=== PATIENT | female | born 1960 | race American Indian/Alaskan Native ===

== ENCOUNTER 2021-08-08 15:49 | Inpatient (IN) | payer MEDICAID ==
[2021-08-09 01:08] LABS: Basophils % (Auto) 0.9 % (0.0-1.8); Eosinophils # (Auto) 0.1 K/mm3 (0.0-0.4); Eosinophils % (Auto) 2.2 % (0.0-4.3); Hematocrit 36.9 % (30.3-42.9); Hemoglobin 11.8 gm/dl (10.1-14.3); Lymphocytes # (Auto) 1.7 K/mm3 (1.2-5.4); Lymphocytes % (Auto) 36.8 % (13.4-35.0); Mean Corpuscular HGB Conc 32 % (30-34); Mean Corpuscular Volume 85 fl (79-97); Monocytes # (Auto) 0.4 K/mm3 (0.0-0.8); Monocytes % (Auto) 8.8 % (0.0-7.3); Platelet Count 278 K/mm3 (140-440); Red Blood Count 4.35 M/mm3 (3.65-5.03); Red Cell Distribution Width 14.7 % (13.2-15.2)
[2021-08-09 01:30] LABS: Alanine Aminotransferase 13 units/L (7-56); Albumin 3.9 g/dL (3.9-5); BUN/Creatinine Ratio 10; Blood Urea Nitrogen 10 mg/dL (7-17); Calcium 9.3 mg/dL (8.4-10.2); Chol/HDL Ratio 3.51 %; HDL Cholesterol 49 mg/dL (40-59); Hemolysis Index 2; LDL Cholesterol,Direct 113 mg/dL (50-130)
[2021-08-09 01:32] LABS: Hepatitis B Surface Antigen Non-Reactive (Negative); Hepatitis C Virus Antibody Non-Reactive (NonReactive)
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
[2021-08-09] MEDS ORDERED: NON-FORMULARY EACH (Oxycodone Hcl/Acetaminophen [Oxycodone-Acetaminophen 10-325] 1 EACH Ta PO PRN (08:54)
[2021-08-09] MEDS ORDERED: hydrOXYzine HCL 25 MG TAB PO PRN (10:00)
[2021-08-09] MEDS ORDERED: cloNIDine 0.1 MG TAB PO PRN (10:00)
[2021-08-09] MEDS ORDERED: oxyCODONE /ACETAMINOPHEN 5-325MG TAB PO PRN (10:00)
[2021-08-09] MEDS: ASPIRIN EC 81 MG TAB PO SCH (10:05)
[2021-08-09] MEDS: amLODIPine 10 MG TAB PO SCH (10:05)
[2021-08-09] MEDS ORDERED: carvediloL 6.25 MG TAB PO SCH (11:00)
[2021-08-09] MEDS: metFORMIN 500 MG TAB PO SCH ×2 (11:03→17:39)
[2021-08-09] MEDS: GLIMEPIRIDE 2 MG TAB PO SCH (11:03)
[2021-08-09] MEDS: NYSTATIN OINT 15 GM TP SCH ×2 (11:03→21:29)
[2021-08-09] MEDS ORDERED: NON-FORMULARY EACH (Apixaban 5 MG Tablet) PO SCH (12:00)
--- NOTE | 2021-08-09 13:33 | Consultation ---
History of Present Illness - Reason for Consult Consult date: 08/09/21 Medical management - History of Present Illness Patient is a 61-year-old female past medical history of [id number] type 2 diabetes mellitus, hypertension, constipation, multiple pulmonary embolisms (on anticoagulationEliquis 5 mg twice daily), depression who presents with suicidal ideation after thoughts of jumping off of a bridge. The patient also endorsed auditory hallucinations prompting her to end her life. The patient endorses having unsheltered homelessness with her nearest family being in [place], [place]. Patient has 1 son; however, he is unaware of her most recent suicidal ideations. Patient described having acute substernal chest pain this morning. She provided more information in terms of her admitting to not being adherent to medications due to running out of them. She states that her son was filling her prescription; however, she got admitted to another hospital for unknown reasons. She has been off of her Eliquis for approximately 1 week. Medicine is being consulted for medical management. Past History Past Medical History: diabetes, hypertension, pulmonary embolism, other (Constipation) Past Surgical History: Social history: single, Lives alone, full code Family history: diabetes, hypertension Medications and Allergies Allergies Allergy/AdvReac Type Severity Reaction Status Date / Time pregabalin [From Lyrica] Allergy Hives Verified 08/08/21 21:56 Home Medications Medication Instructions Recorded Confirmed Last Taken Type Apixaban [Eliquis] 5 mg PO BID 08/09/21 08/09/21 Unknown History Aspirin EC [Halfprin EC] 81 mg PO QDAY 08/09/21 08/09/21 Unknown History Gabapentin [Neurontin] 300 mg PO TID 08/09/21 08/09/21 Unknown History Glimepiride [Amaryl] 2 mg PO DAILY 08/09/21 08/09/21 Unknown History Nystatin Oint [Mycostatin Oint] 1 applicatio TP BID 08/09/21 08/09/21 Unknown History Oxycodone HCl/Acetaminophen 1 each PO Q6HR PRN 08/09/21 08/09/21 Unknown History [Oxycodone-Acetaminophen 10-325] PARoxetine HCL [Paroxetine] 30 mg PO HS 08/09/21 08/09/21 Unknown History Prazosin [Minipress] 1 mg PO HS 08/09/21 08/09/21 Unknown History Sucralfate [Carafate] 1 gm PO ACHS 08/09/21 08/09/21 Unknown History amLODIPine [Norvasc] 10 mg PO DAILY 08/09/21 08/09/21 Unknown History cloNIDine [Catapres] 0.1 mg PO DAILY PRN 08/09/21 08/09/21 Unknown History hydrOXYzine HCL [Atarax] 25 mg PO Q8HR PRN 08/09/21 08/09/21 Unknown History metFORMIN [Glucophage] 1,000 mg PO BID 08/09/21 08/09/21 Unknown History Active Meds: Active Medications Amlodipine Besylate (Amlodipine 10 Mg Tab) 10 mg PO DAILY [facility] Last Admin: 08/09/21 10:05 Dose: 10 mg Amoxicillin/Clavulanate Potassium (Amoxicillin/K Clav 875/125mg Tab) 1 each PO Q12HR [facility]; Protocol Stop: 08/16/21 13:59 Apixaban (Apixaban 5 Mg Tab) 5 mg PO Q12HR [facility] Aspirin (Aspirin Ec 81 Mg Tab) 81 mg PO QDAY [facility] Last Admin: 08/09/21 10:05 Dose: 81 mg Carvedilol (Carvedilol 6.25 Mg Tab) 6.25 mg PO BID [facility] Clonidine HCl (Clonidine 0.1 Mg Tab) 0.1 mg PO DAILY PRN PRN Reason: Blood Pressure Gabapentin (Gabapentin 300 Mg Cap) 300 mg PO TID [facility] Glimepiride (Glimepiride 2 Mg Tab) 2 mg PO QDDIAB [facility] Last Admin: 08/09/21 11:03 Dose: Not Given Hydroxyzine HCl (Hydroxyzine Hcl 25 Mg Tab) 25 mg PO Q8HR PRN PRN Reason: Anxiety Metformin HCl (Metformin 500 Mg Tab) 1,000 mg PO BIDDIAB [facility] Last Admin: 08/09/21 11:03 Dose: Not Given Nystatin (Nystatin Oint 15 Gm) 1 applic TP BID [facility] Last Admin: 08/09/21 11:03 Dose: Not Given Oxycodone/Acetaminophen (Oxycodone /Acetaminophen 5-325mg Tab) 1 tab PO Q6H PRN PRN Reason: Pain, Moderate (4-6) Paroxetine HCl (Paroxetine 10 Mg Tab) 30 mg PO QHS [facility] Polyethylene Glycol (Polyethylene Glycol 3350 17 Gm Powder) 17 gm PO QDAY [facility] Prazosin HCl (Prazosin 1 Mg Cap) 1 mg PO HS [facility] Sucralfate (Sucralfate 1 Gm Tab) 1 gm PO ACHS [facility] Trazodone HCl (Trazodone 50 Mg Tab) 50 mg PO QHS [facility] Review of Systems All systems: negative Cardiovascular: chest pain, shortness of breath Gastrointestinal: constipation Genitourinary Female: dysuria Psychiatric: suicidal ideation (Thoughts of jumping off of a bridge), hallucinations (Auditory), sadness/tearfullness Exam - Constitutional Vitals: Temp Pulse Resp BP Pulse Ox 98.7 F 69 18 169/86 99 08/09/21 11:55 08/09/21 11:55 08/09/21 11:55 08/09/21 11:55 08/09/21 11:55 General appearance: Present: mild distress, well-nourished, obese, other (Very tearful) - EENT Eyes: Present: PERRL, EOM intact ENT: hearing intact, clear oral mucosa - Neck Neck: Present: supple, normal ROM - Respiratory Respiratory effort: normal Respiratory: bilateral: CTA - Cardiovascular Rhythm: regular Heart Sounds: Present: S1 & S2 - Extremities Extremities: no ischemia, pulses intact, pulses symmetrical, No edema, normal temperature, normal color, Full ROM Peripheral Pulses: within normal limits - Abdominal General gastrointestinal: Present: soft, non-tender, non-distended, normal bowel sounds Female genitourinary: Present: deferred - Rectal Rectal Exam: deferred - Integumentary Integumentary: Present: clear, warm, dry - Musculoskeletal Musculoskeletal: strength equal bilaterally - Psychiatric Psychiatric: appropriate mood/affect, memory intact, depressed, other (Tearful) - Neurologic Neurologic: CNII-XII intact, moves all extremities - Allied Health Allied health notes reviewed: nursing Results - Labs CBC & Chem 7: 08/09/21 00:47 08/09/21 00:47 Labs: Abnormal lab results 08/09/21 08/09/21 08/09/21 Range/Units 00:46 00:47 00:47 MCH 27 L (28-32) pg Lymph % (Auto) 36.8 H (13.4-35.0) % [place] % (Auto) 8.8 H (0.0-7.3) % Glucose 135 H (65-100) mg/dL POC Glucose (70-105) mg/dL Hemoglobin A1c 7.9 H (4-6) % Total Protein 6.0 L (6.3-8.2) g/dL 08/09/21 Range/Units 08:00 MCH (28-32) pg Lymph % (Auto) (13.4-35.0) % [place] % (Auto) (0.0-7.3) % Glucose (65-100) mg/dL POC Glucose 106 H (70-105) mg/dL Hemoglobin A1c (4-6) % Total Protein (6.3-8.2) g/dL Assessment and Plan #Chest pain Possibly secondary to pneumonia versus acute coronary syndrome versus acute pulmonary embolism versus emotional Troponin negative x1. Trending troponin. Chest x-ray (08/09/2021) unremarkable for consolidations, increased interstitial infiltrates, pleural effusions, or increased cardiac silhouette Pending CT angio chest for possible acute pulmonary embolism. If acute pulmonary embolism is found, would be secondary to nonadherence with anticoagulation prior to presentation. Continue to monitor #History of pulmonary embolism Restarting home Eliquis 5 mg twice daily #Hypertension - home medications: Amlodipine 10 mg daily and clonidine 0.1 mg as needed - current medications: Amlodipine 10 mg daily and Coreg 12.5 mg twice daily - SBP goal <160 and DBP goal <90 while inpatient - continue to monitor #Non-insulin dependent type II diabetes mellitus complicated by diabetic neuro sonny - hemoglobin A1c: 7.9 - home regimen: Metformin 1000 mg twice daily and glimepiride 2 mg daily and gabapentin 300 mg 3 times daily - current regimen: Metformin 1000 mg twice daily and glimepiride 2 mg daily and gabapentin 300 mg 3 times daily - blood glucose goal 140-180 while inpatient - continue to monitor #Dysuria Pending urinalysis Starting Augmentin 500 mg twice daily x7 days. Continue to monitor #Constipation Scheduling daily MiraLAX. Continue to monitor #Obesity #Weight loss counseling #Exercise counseling - BMI 32.9 - Counseled patient on the importance of weight loss, incorporating exercise, and dietary changes (lean meats, fresh fruits and vegetables, and water intake). Patient expresses understanding. - Time: +15 min #Advanced care planning -Disease education conducted, care plan discussed, diagnoses discussed, prognosis discussed, and patient acknowledges understanding with care plan -Time: +30 min Thank you for this interesting consult. We will continue to follow.
[2021-08-09] MEDS: AMOXICILLIN/K CLAV 875/125MG TAB PO SCH ×2 (13:41→21:27)
[2021-08-09] MEDS: SUCRALFATE 1 GM TAB PO SCH ×3 (13:43→21:27)
--- NOTE | 2021-08-09 13:47 | XRay Report ---
CHEST 1 VIEW 08/09/2021 11:58 AM INDICATION / CLINICAL INFORMATION: Evaluate in the setting of chest pain. COMPARISON: None available. FINDINGS: SUPPORT DEVICES: None. HEART / MEDIASTINUM: The heart size and pulmonary vasculature are normal. There is mild aortic tortuo sity without aneurysm. LUNGS / PLEURA: No significant pulmonary or pleural abnormality. No pneumothorax. ADDITIONAL FINDINGS: No significant additional findings. IMPRESSION: No acute findings. Signer Name: Kaleb Bee MD Signed: 08/09/2021 1:42 PM Workstation Name: [id number]
[2021-08-09] MEDS ORDERED: carvediloL 6.25 MG TAB PO ONE (14:00)
[2021-08-09] MEDS: GABAPENTIN 300 MG CAP PO SCH ×2 (15:21→21:01)
[2021-08-09] MEDS: carvediloL 12.5 MG TAB PO SCH (21:28)
[2021-08-09] MEDS: traZODone 50 MG TAB PO SCH (21:29)
[2021-08-09] MEDS: PRAZOSIN 1 MG CAP PO SCH (21:31)
[2021-08-09] MEDS ORDERED: PARoxetine 10 MG TAB PO SCH (22:00)
[2021-08-09] MEDS ORDERED: PAROXETINE HCL 30 MG PO SCH (22:00)
[2021-08-09] MEDS ORDERED: APIXABAN 5 MG TAB PO SCH (22:00)
[2021-08-10] MEDS ORDERED: hydrOXYzine HCL 25 MG TAB PO PRN (09:39)
--- NOTE | 2021-08-10 09:39 | Progress Note ---
Subjective Date of service: 08/10/21 Subjective Comment: The patient was seen today. She verbalizes feeling better. She says she slept good and didn't have any nightmares. She says she is still a little anxious and still has some depression. The patient denies SI/HI or hallucinations. REVIEW OF SYSTEMS Constitutional: Negative for weight loss ENT: Negative for stridor Respiratory: Negative for cough or hemoptysis All other systems reviewed and are negative MENTAL STATUS EXAMINATION General Appearance and Behavior: Age appropriate, good hygiene, wearing appropriate clothes, fair eye contact, anxious, cooperative Cooperation: Participating/engaged Psychomotor Behavior: Psychomotor normal Mood: better, anxious Affect and affective range: congruent with stated mood, tearful Thought Process: goal directed Thought Content: None Speech: normal tone and pace Suicidal Ideation: Denies Homicidal Ideation: Denies Hallucinations: Denies Delusions: None elicited Impulse Control: Limited Insight and Judgment: Limited insight and judgment Memory: Limited Attention: attentive Orientation: Alert, oriented Assessment and Plan Major Depressive Disorder Generalized Anxiety Disorder Treatment Plan Patient admitted for inpatient psychiatric evaluation, medication adjustment and close monitoring The patient's behavior, mood, sleep and appetite will be closely monitored. Patient enrolled in individual and group therapeutic sessions and encouraged to attend. Patient provided with a safe and structured environment. Patient's physical health needs will be addressed by the Hospitalist. Hospitalist Consulted Labs including CBC, CMP, Lipid profile and Hemoglobin A1C levels ordered for baseline reference Social Assessment will be completed and the Safety Investigator/Cause Analyst will work with patient and family to ensure a suitable and safe disposition Medication adjustment will be made as clinically indicated Increase Paxil 40mg po daily Increase Vistaril 50mg po q6h prn anxiety Usual Wellness Holiness/Preservation: - Start Trazodone 50 mg po QHS & 50 mg po QHS PRN between 10 PM & 2 AM for insomnia - Start Melatonin 5 mg po QHS to promote circadian rhythm The patient agreed on the treatment plan, understood the risk, benefit, alternative treatment, potential consequence of no treatment, and gave informed consent. Estimated days: 7 Post hospital care: primary care provider, psychiatric provider Case staffed with Dr. Coronado Medications and Allergies Allergies Allergy/AdvReac Type Severity Reaction Status Date / Time pregabalin [From Lyrica] Allergy Hives Verified 08/08/21 21:56 Home Medications Medication Instructions Recorded Confirmed Last Taken Type Apixaban [Eliquis] 5 mg PO BID 08/09/21 08/09/21 Unknown History Aspirin EC [Halfprin EC] 81 mg PO QDAY 08/09/21 08/09/21 Unknown History Gabapentin [Neurontin] 300 mg PO TID 08/09/21 08/09/21 Unknown History Glimepiride [Amaryl] 2 mg PO DAILY 08/09/21 08/09/21 Unknown History Nystatin Oint [Mycostatin Oint] 1 applicatio TP BID 08/09/21 08/09/21 Unknown History Oxycodone HCl/Acetaminophen 1 each PO Q6HR PRN 08/09/21 08/09/21 Unknown History [Oxycodone-Acetaminophen 10-325] PARoxetine HCL [Paroxetine] 30 mg PO HS 08/09/21 08/09/21 Unknown History Prazosin [Minipress] 1 mg PO HS 08/09/21 08/09/21 Unknown History Sucralfate [Carafate] 1 gm PO ACHS 08/09/21 08/09/21 Unknown History amLODIPine [Norvasc] 10 mg PO DAILY 08/09/21 08/09/21 Unknown History cloNIDine [Catapres] 0.1 mg PO DAILY PRN 08/09/21 08/09/21 Unknown History hydrOXYzine HCL [Atarax] 25 mg PO Q8HR PRN 08/09/21 08/09/21 Unknown History metFORMIN [Glucophage] 1,000 mg PO BID 08/09/21 08/09/21 Unknown History Active Meds: Active Medications Amlodipine Besylate (Amlodipine 10 Mg Tab) 10 mg PO DAILY [facility] Last Admin: 08/09/21 10:05 Dose: 10 mg Amoxicillin/Clavulanate Potassium (Amoxicillin/K Clav 875/125mg Tab) 1 each PO Q12HR [facility]; Protocol Stop: 08/16/21 13:59 Last Admin: 08/09/21 21:27 Dose: 1 each Apixaban (Apixaban 5 Mg Tab) 5 mg PO Q12HR [facility]; Protocol Aspirin (Aspirin Ec 81 Mg Tab) 81 mg PO QDAY [facility] Last Admin: 08/09/21 10:05 Dose: 81 mg Carvedilol (Carvedilol 12.5 Mg Tab) 12.5 mg PO BID [facility] Last Admin: 08/09/21 21:28 Dose: 12.5 mg Clonidine HCl (Clonidine 0.1 Mg Tab) 0.1 mg PO DAILY PRN PRN Reason: Blood Pressure Gabapentin (Gabapentin 300 Mg Cap) 300 mg PO TID [facility] Last Admin: 08/09/21 21:01 Dose: 300 mg Glimepiride (Glimepiride 2 Mg Tab) 2 mg PO QDDIAB [facility] Last Admin: 08/09/21 11:03 Dose: Not Given Hydroxyzine HCl (Hydroxyzine Hcl 25 Mg Tab) 25 mg PO Q8HR PRN PRN Reason: Anxiety Metformin HCl (Metformin 500 Mg Tab) 1,000 mg PO BIDDIAB [facility] Last Admin: 08/09/21 17:39 Dose: Not Given Nystatin (Nystatin Oint 15 Gm) 1 applic TP BID [facility] Last Admin: 08/09/21 21:29 Dose: 1 applic Oxycodone/Acetaminophen (Oxycodone /Acetaminophen 5-325mg Tab) 1 tab PO Q6H PRN PRN Reason: Pain, Moderate (4-6) Paroxetine HCl (Paroxetine 10 Mg Tab) 30 mg PO QHS [facility] Last Admin: 08/09/21 22:19 Dose: 30 mg Polyethylene Glycol (Polyethylene Glycol 3350 17 Gm Powder) 17 gm PO QDAY [facility] Prazosin HCl (Prazosin 1 Mg Cap) 1 mg PO [facility] Last Admin: 08/09/21 21:31 Dose: 1 mg Sucralfate (Sucralfate 1 Gm Tab) 1 gm PO [facility] Last Admin: 08/09/21 21:27 Dose: 1 gm Trazodone HCl (Trazodone 50 Mg Tab) 50 mg PO QHS [facility] Last Admin: 08/09/21 21:29 Dose: 50 mg Results - Results Labs/Vitals: Laboratory Last Values WBC 4.6 K/mm3 (4.5-11.0) 08/09/21 00:47 RBC 4.35 M/mm3 (3.65-5.03) 08/09/21 00:47 Hgb 11.8 gm/dl (10.1-14.3) 08/09/21 00:47 Hct 36.9 % (30.3-42.9) 08/09/21 00:47 MCV 85 fl (79-97) 08/09/21 00:47 MCH 27 pg (28-32) L 08/09/21 00:47 MCHC 32 % (30-34) 08/09/21 00:47 RDW 14.7 % (13.2-15.2) 08/09/21 00:47 Plt Count 278 K/mm3 (140-440) 08/09/21 00:47 Lymph % (Auto) 36.8 % (13.4-35.0) H 08/09/21 00:47 [place] % (Auto) 8.8 % (0.0-7.3) H 08/09/21 00:47 Eos % (Auto) 2.2 % (0.0-4.3) 08/09/21 00:47 Baso % (Auto) 0.9 % (0.0-1.8) 08/09/21 00:47 Lymph # (Auto) 1.7 K/mm3 (1.2-5.4) 08/09/21 00:47 [place] # (Auto) 0.4 K/mm3 (0.0-0.8) 08/09/21 00:47 Eos # (Auto) 0.1 K/mm3 (0.0-0.4) 08/09/21 00:47 Baso # (Auto) 0.0 K/mm3 (0.0-0.1) 08/09/21 00:47 Seg Neutrophils % 51.3 % (40.0-70.0) 08/09/21 00:47 Seg Neutrophils # 2.4 K/mm3 (1.8-7.7) 08/09/21 00:47 Sodium 138 mmol/L (137-145) 08/09/21 00:47 Potassium 4.5 mmol/L (3.6-5.0) 08/09/21 00:47 Chloride 102.7 mmol/L (98-107) 08/09/21 00:47 Carbon Dioxide 28 mmol/L (22-30) 08/09/21 00:47 Anion Gap 12 mmol/L 08/09/21 00:47 BUN 10 mg/dL (7-17) 08/09/21 00:47 Creatinine 1.0 mg/dL (0.6-1.2) 08/09/21 00:47 Estimated GFR > 60 ml/min 08/09/21 00:47 BUN/Creatinine Ratio 10 % 08/09/21 00:47 Glucose 135 mg/dL (65-100) H 08/09/21 00:47 POC Glucose 188 mg/dL (70-105) H 08/09/21 19:48 Hemoglobin A1c 7.9 % (4-6) H 08/09/21 00:46 Calcium 9.3 mg/dL (8.4-10.2) 08/09/21 00:47 Total Bilirubin < 0.20 mg/dL (0.1-1.2) 08/09/21 00:47 AST 10 units/L (5-40) 08/09/21 00:47 ALT 13 units/L (7-56) 08/09/21 00:47 Alkaline Phosphatase 109 units/L (35-129) 08/09/21 00:47 Troponin T < 0.010 ng/mL (0.00-0.029) 08/09/21 16:28 Total Protein 6.0 g/dL (6.3-8.2) L 08/09/21 00:47 Albumin 3.9 g/dL (3.9-5) 08/09/21 00:47 Albumin/Globulin Ratio 1.9 % 08/09/21 00:47 Triglycerides 64 mg/dL (2-149) 08/09/21 00:47 Cholesterol 172 mg/dL (50-199) 08/09/21 00:47 LDL Cholesterol Direct 113 mg/dL (50-130) 08/09/21 00:47 HDL Cholesterol 49 mg/dL (40-59) 08/09/21 00:47 Cholesterol/HDL Ratio 3.51 % 08/09/21 00:47 TSH 1.410 mlU/mL (0.270-4.200) 08/09/21 00:46 Hep Bs Antigen Non-reactive (Negative) 08/09/21 00:47 Hep B Core IgM Ab Non-reactive (NonReactive) 08/09/21 00:47 Hepatitis C Antibody Non-reactive (NonReactive) 08/09/21 00:47 Last Vital Signs Temp 97.8 F 08/09/21 19:54 Pulse 74 08/09/21 21:31 Resp 18 08/09/21 19:54 BP 159/67 08/09/21 21:31 Pulse Ox 97 08/09/21 19:54
[2021-08-10] MEDS: POLYETHYLENE GLYCOL 3350 17 GM POWDER PO SCH ×2 (10:09→20:09)
[2021-08-10] MEDS: AMOXICILLIN/K CLAV 875/125MG TAB PO SCH ×2 (10:10→22:04)
[2021-08-10] MEDS: APIXABAN 5 MG TAB PO SCH ×2 (10:10→22:05)
[2021-08-10] MEDS: ASPIRIN EC 81 MG TAB PO SCH (10:10)
[2021-08-10] MEDS: GABAPENTIN 300 MG CAP PO SCH ×3 (10:11→20:14)
[2021-08-10] MEDS: SUCRALFATE 1 GM TAB PO SCH ×4 (10:11→22:03)
[2021-08-10] MEDS: GLIMEPIRIDE 2 MG TAB PO SCH (10:11)
[2021-08-10] MEDS: carvediloL 12.5 MG TAB PO SCH ×2 (10:12→22:05)
[2021-08-10] MEDS: metFORMIN 500 MG TAB PO SCH ×2 (10:12→16:41)
[2021-08-10] MEDS: amLODIPine 10 MG TAB PO SCH (10:12)
[2021-08-10] MEDS: NYSTATIN OINT 15 GM TP SCH ×2 (10:13→22:04)
--- NOTE | 2021-08-10 10:32 | Cat Scan Report ---
CT angio chest INDICATION / CLINICAL INFORMATION: Evaluate for pulmonary embolism. TECHNIQUE: Axial CT images were obtained through the chest after injection of 75 cc Omnipaque 350 IV contrast. 3 plane MIP and/or 3D reconstructions were produced. All CT scans at this location are perf ormed using CT dose reduction for ALARA by means of automated exposure control. COMPARISON: Chest radiograph from yesterday, 08/09/2021 FINDINGS: PULMONARY ARTERIES: No central or segmental pulmonary embolus. THORACIC AORTA: No significant abnormality. HEART: No significant abnormality. CORONARY ARTERY CALCIFICATION: No significant calcification. LYMPHADENOPATHY: Mildly enlarged mediastinal lymph nodes are present. These are nonspecific but may b e reactive. LUNGS/PLEURA: Mild airspace consolidation of the right lower lobe No pleural effusion or pneumothorax . OTHER FINDINGS: None. UPPER ABDOMEN: No acute findings. SKELETAL SYSTEM: No acute osseous findings. IMPRESSION: 1. No evidence for pulmonary embolism. 2. Minimal airspace consolidation of the right lower lobe, may reflect developing infiltrate or atele ctasis. Signer Name: Jez Wheat MD Signed: 08/10/2021 10:28 AM Workstation Name: [id number]
[2021-08-10] MEDS: PARoxetine 20 MG TAB PO SCH (12:13)
--- NOTE | 2021-08-10 14:45 | Progress Note ---
Assessment and Plan Assessment and plan: #Chest painruled out Possibly secondary to pneumonia versus acute coronary syndrome versus acute pulmonary embolism versus emotional Troponin negative x 3 Chest x-ray (08/09/2021) unremarkable for consolidations, increased interstitial infiltrates, pleural effusions, or increased cardiac silhouette CT angio chest unremarkable for acute pulmonary embolism. Continue to monitor #History of pulmonary embolism Continue home Eliquis 5 mg twice daily #Hypertension - home medications: Amlodipine 10 mg daily and clonidine 0.1 mg as needed - current medications: Amlodipine 10 mg daily and Coreg 12.5 mg twice daily - SBP goal <160 and DBP goal <90 while inpatient - continue to monitor #Non-insulin dependent type II diabetes mellitus complicated by diabetic neuropathy - hemoglobin A1c: 7.9 - home regimen: Metformin 1000 mg twice daily and glimepiride 2 mg daily and gabapentin 300 mg 3 times daily - current regimen: Metformin 1000 mg twice daily and glimepiride 2 mg daily and gabapentin 300 mg 3 times daily - blood glucose goal 140-180 while inpatient - continue to monitor #Dysuria Pending urinalysis Continue Augmentin 500 mg twice daily x7 days. Continue to monitor #Constipation Scheduling daily MiraLAX. Continue to monitor #Obesity #Weight loss counseling #Exercise counseling - BMI 32.9 - Counseled patient on the importance of weight loss, incorporating exercise, and dietary changes (lean meats, fresh fruits and vegetables, and water intake). Patient expresses understanding. - Time: +15 min #Advanced care planning -Disease education conducted, care plan discussed, diagnoses discussed, prognosis discussed, and patient acknowledges understanding with care plan -Time: +30 min Continuing to follow this patient. Please all hesitate to reach out should any questions arise. Disposition Plan: Continue medical management Total Time Spent with Patient (Minutes): 45 minutes History Interval history: No acute events overnight. Hospitalist Physical - Constitutional Vitals: Temp Pulse Resp BP Pulse Ox 97.8 F 75 18 130/80 97 08/09/21 19:54 08/10/21 10:12 08/09/21 19:54 08/10/21 10:12 08/09/21 19:54 General appearance: Present: no acute distress, well-nourished, obese, other (Very tearful) - EENT Eyes: Present: PERRL, EOM intact ENT: hearing intact, clear oral mucosa, dentition normal - Neck Neck: Present: supple, normal ROM - Respiratory Respiratory effort: normal Respiratory: bilateral: CTA - Cardiovascular Rhythm: regular Heart Sounds: Present: S1 & S2 - Extremities Extremities: no ischemia, pulses intact, pulses symmetrical, No edema, normal temperature, normal color, Full ROM Peripheral Pulses: within normal limits - Abdominal General gastrointestinal: soft, non-tender, non-distended, normal bowel sounds - Integumentary Integumentary: Present: clear, warm, dry - Psychiatric Psychiatric: appropriate mood/affect, cooperative, depressed - Neurologic Neurologic: CNII-XII intact, moves all extremities - Allied Health Allied health notes reviewed: nursing HEART Score - HEART Score Troponin: Troponin T < 0.010 ng/mL (0.00-0.029) 08/09/21 16:28 Results - Labs CBC & Chem 7: 08/09/21 00:47 08/09/21 00:47 Labs: Laboratory Last Values WBC 4.6 K/mm3 (4.5-11.0) 08/09/21 00:47 RBC 4.35 M/mm3 (3.65-5.03) 08/09/21 00:47 Hgb 11.8 gm/dl (10.1-14.3) 08/09/21 00:47 Hct 36.9 % (30.3-42.9) 08/09/21 00:47 MCV 85 fl (79-97) 08/09/21 00:47 MCH 27 pg (28-32) L 08/09/21 00:47 MCHC 32 % (30-34) 08/09/21 00:47 RDW 14.7 % (13.2-15.2) 08/09/21 00:47 Plt Count 278 K/mm3 (140-440) 08/09/21 00:47 Lymph % (Auto) 36.8 % (13.4-35.0) H 08/09/21 00:47 [place] % (Auto) 8.8 % (0.0-7.3) H 08/09/21 00:47 Eos % (Auto) 2.2 % (0.0-4.3) 08/09/21 00:47 Baso % (Auto) 0.9 % (0.0-1.8) 08/09/21 00:47 Lymph # (Auto) 1.7 K/mm3 (1.2-5.4) 08/09/21 00:47 [place] # (Auto) 0.4 K/mm3 (0.0-0.8) 08/09/21 00:47 Eos # (Auto) 0.1 K/mm3 (0.0-0.4) 08/09/21 00:47 Baso # (Auto) 0.0 K/mm3 (0.0-0.1) 08/09/21 00:47 Seg Neutrophils % 51.3 % (40.0-70.0) 08/09/21 00:47 Seg Neutrophils # 2.4 K/mm3 (1.8-7.7) 08/09/21 00:47 Sodium 138 mmol/L (137-145) 08/09/21 00:47 Potassium 4.5 mmol/L (3.6-5.0) 08/09/21 00:47 Chloride 102.7 mmol/L (98-107) 08/09/21 00:47 Carbon Dioxide 28 mmol/L (22-30) 08/09/21 00:47 Anion Gap 12 mmol/L 08/09/21 00:47 BUN 10 mg/dL (7-17) 08/09/21 00:47 Creatinine 1.0 mg/dL (0.6-1.2) 08/09/21 00:47 Estimated GFR > 60 ml/min 08/09/21 00:47 BUN/Creatinine Ratio 10 % 08/09/21 00:47 Glucose 135 mg/dL (65-100) H 08/09/21 00:47 POC Glucose 145 mg/dL (70-105) H 08/10/21 11:40 Hemoglobin A1c 7.9 % (4-6) H 08/09/21 00:46 Calcium 9.3 mg/dL (8.4-10.2) 08/09/21 00:47 Total Bilirubin < 0.20 mg/dL (0.1-1.2) 08/09/21 00:47 AST 10 units/L (5-40) 08/09/21 00:47 ALT 13 units/L (7-56) 08/09/21 00:47 Alkaline Phosphatase 109 units/L (35-129) 08/09/21 00:47 Troponin T < 0.010 ng/mL (0.00-0.029) 08/09/21 16:28 Total Protein 6.0 g/dL (6.3-8.2) L 08/09/21 00:47 Albumin 3.9 g/dL (3.9-5) 08/09/21 00:47 Albumin/Globulin Ratio 1.9 % 08/09/21 00:47 Triglycerides 64 mg/dL (2-149) 08/09/21 00:47 Cholesterol 172 mg/dL (50-199) 08/09/21 00:47 LDL Cholesterol Direct 113 mg/dL (50-130) 08/09/21 00:47 HDL Cholesterol 49 mg/dL (40-59) 08/09/21 00:47 Cholesterol/HDL Ratio 3.51 % 08/09/21 00:47 TSH 1.410 mlU/mL (0.270-4.200) 08/09/21 00:46 Hep Bs Antigen Non-reactive (Negative) 08/09/21 00:47 Hep B Core IgM Ab Non-reactive (NonReactive) 08/09/21 00:47 Hepatitis C Antibody Non-reactive (NonReactive) 08/09/21 00:47 [place]/IV: Voiding Method Toilet Active Medications - Current Medications Current Medications: Generic Name Dose Route Start Last Admin Trade Name Freq PRN Reason Stop Dose Admin Amlodipine Besylate 10 mg 08/09/21 10:00 08/10/21 10:12 Amlodipine 10 Mg Tab PO 10 mg DAILY [facility] Administration Amoxicillin/Clavulanate Potassium 1 each 08/09/21 14:00 08/10/21 10:10 Amoxicillin/K Clav 875/125mg Tab PO 08/16/21 13:59 1 each Q12HR [facility] Administration Protocol Apixaban 5 mg 08/10/21 10:00 08/10/21 10:10 Apixaban 5 Mg Tab PO 5 mg Q12HR [facility] Administration Protocol Aspirin 81 mg 08/09/21 10:00 08/10/21 10:10 Aspirin Ec 81 Mg Tab PO 81 mg QDAY [facility] Administration Carvedilol 12.5 mg 08/09/21 22:00 08/10/21 10:12 Carvedilol 12.5 Mg Tab PO 12.5 mg BID [facility] Administration Clonidine HCl 0.1 mg 08/09/21 10:00 Clonidine 0.1 Mg Tab PO DAILY PRN Blood Pressure Gabapentin 300 mg 08/09/21 14:00 08/10/21 14:25 Gabapentin 300 Mg Cap PO 300 mg TID [facility] Administration Glimepiride 2 mg 08/09/21 10:00 08/10/21 10:11 Glimepiride 2 Mg Tab PO 2 mg QDDIAB [facility] Administration Hydroxyzine HCl 50 mg 08/10/21 09:39 Hydroxyzine Hcl 25 Mg Tab PO Q8H PRN Anxiety Metformin HCl 1,000 mg 08/09/21 10:00 08/10/21 10:12 Metformin 500 Mg Tab PO 1,000 mg BIDDIAB [facility] Administration Nystatin 1 applic 08/09/21 10:00 08/10/21 10:13 Nystatin Oint 15 Gm TP 1 applic BID [facility] Administration Oxycodone/Acetaminophen 1 tab 08/09/21 10:00 Oxycodone /Acetaminophen 5-325mg Tab PO Q6H PRN Pain, Moderate (4-6) Paroxetine HCl 40 mg 08/10/21 10:00 08/10/21 12:13 Paroxetine 20 Mg Tab PO Not Given QDAY [facility] Polyethylene Glycol 17 gm 08/09/21 18:00 08/10/21 10:09 Polyethylene Glycol 3350 17 Gm Powder PO 17 gm QDAY [facility] Administration Prazosin HCl 1 mg 08/09/21 22:00 08/09/21 21:31 Prazosin 1 Mg Cap PO 1 mg HS [facility] Administration Sucralfate 1 gm 08/09/21 11:30 08/10/21 11:30 Sucralfate 1 Gm Tab PO 1 gm ACHS [facility] Administration Trazodone HCl 50 mg 08/09/21 22:00 08/09/21 21:29 Trazodone 50 Mg Tab PO 50 mg QHS [facility] Administration
[2021-08-10] MEDS: traZODone 50 MG TAB PO SCH (22:04)
[2021-08-10] MEDS: PRAZOSIN 1 MG CAP PO SCH (22:06)
[2021-08-11] MEDS: GLIMEPIRIDE 2 MG TAB PO SCH (08:27)
[2021-08-11] MEDS: SUCRALFATE 1 GM TAB PO SCH ×4 (08:27→21:35)
[2021-08-11] MEDS: GABAPENTIN 300 MG CAP PO SCH ×3 (08:27→20:04)
[2021-08-11] MEDS: metFORMIN 500 MG TAB PO SCH ×2 (08:27→16:25)
[2021-08-11] MEDS: ASPIRIN EC 81 MG TAB PO SCH (09:03)
[2021-08-11] MEDS: AMOXICILLIN/K CLAV 875/125MG TAB PO SCH ×2 (09:03→21:35)
[2021-08-11] MEDS: POLYETHYLENE GLYCOL 3350 17 GM POWDER PO SCH (09:03)
[2021-08-11] MEDS: carvediloL 12.5 MG TAB PO SCH ×2 (09:07→21:36)
[2021-08-11] MEDS: APIXABAN 5 MG TAB PO SCH ×2 (09:09→21:35)
[2021-08-11] MEDS: PARoxetine 20 MG TAB PO SCH (09:09)
[2021-08-11] MEDS: NYSTATIN OINT 15 GM TP SCH ×2 (09:11→21:38)
[2021-08-11] MEDS: oxyCODONE /ACETAMINOPHEN 5-325MG TAB PO PRN ×2 (09:19→20:04)
--- NOTE | 2021-08-11 09:22 | Progress Note ---
Subjective Date of service: 08/11/21 Principal diagnosis: Dementia with Behavioral Disturbance Subjective Comment: The patient was seen today. She says she is doing better and slept well. The patient denies SI/HI or hallucinations. She c/o pain in her left knee. The nurse notified. 08/10 The patient was seen today. She verbalizes feeling better. She says she slept good and didn't have any nightmares. She says she is still a little anxious and still has some depression. The patient denies SI/HI or hallucinations. REVIEW OF SYSTEMS Constitutional: Negative for weight loss ENT: Negative for stridor Respiratory: Negative for cough or hemoptysis All other systems reviewed and are negative MENTAL STATUS EXAMINATION General Appearance and Behavior: Age appropriate, good hygiene, wearing appropriate clothes, fair eye contact, anxious, cooperative Cooperation: Participating/engaged Psychomotor Behavior: Psychomotor normal Mood: better, anxious Affect and affective range: congruent with stated mood, tearful Thought Process: goal directed Thought Content: None Speech: normal tone and pace Suicidal Ideation: Denies Homicidal Ideation: Denies Hallucinations: Denies Delusions: None elicited Impulse Control: Limited Insight and Judgment: Limited insight and judgment Memory: Limited Attention: attentive Orientation: Alert, oriented Assessment and Plan Major Depressive Disorder Generalized Anxiety Disorder Treatment Plan Patient admitted for inpatient psychiatric evaluation, medication adjustment and close monitoring The patient's behavior, mood, sleep and appetite will be closely monitored. Patient enrolled in individual and group therapeutic sessions and encouraged to attend. Patient provided with a safe and structured environment. Patient's physical health needs will be addressed by the Hospitalist. Hospitalist Consulted Labs including CBC, CMP, Lipid profile and Hemoglobin A1C levels ordered for baseline reference Social Assessment will be completed and the Business Law Instructor will work with patient and family to ensure a suitable and safe disposition Medication adjustment will be made as clinically indicated Continue Paxil 40mg po daily Continue Vistaril 50mg po q6h prn anxiety [facility]: - Start Trazodone 50 mg po QHS & 50 mg po QHS PRN between 10 PM & 2 AM for insomnia - Start Melatonin 5 mg po QHS to promote circadian rhythm The patient agreed on the treatment plan, understood the risk, benefit, alternative treatment, potential consequence of no treatment, and gave informed consent. Estimated days: 7 Post hospital care: primary care provider, psychiatric provider Case staffed with Dr. Coronado Medications and Allergies Allergies Allergy/AdvReac Type Severity Reaction Status Date / Time pregabalin [From Lyrica] Allergy Hives Verified 08/08/21 21:56 Home Medications Medication Instructions Recorded Confirmed Last Taken Type Apixaban [Eliquis] 5 mg PO BID 08/09/21 08/09/21 Unknown History Aspirin EC [Halfprin EC] 81 mg PO QDAY 08/09/21 08/09/21 Unknown History Gabapentin [Neurontin] 300 mg PO TID 08/09/21 08/09/21 Unknown History Glimepiride [Amaryl] 2 mg PO DAILY 08/09/21 08/09/21 Unknown History Nystatin Oint [Mycostatin Oint] 1 applicatio TP BID 08/09/21 08/09/21 Unknown History Oxycodone HCl/Acetaminophen 1 each PO Q6HR PRN 08/09/21 08/09/21 Unknown History [Oxycodone-Acetaminophen 10-325] PARoxetine HCL [Paroxetine] 30 mg PO HS 08/09/21 08/09/21 Unknown History Prazosin [Minipress] 1 mg PO HS 08/09/21 08/09/21 Unknown History Sucralfate [Carafate] 1 gm PO ACHS 08/09/21 08/09/21 Unknown History amLODIPine [Norvasc] 10 mg PO DAILY 08/09/21 08/09/21 Unknown History cloNIDine [Catapres] 0.1 mg PO DAILY PRN 08/09/21 08/09/21 Unknown History hydrOXYzine HCL [Atarax] 25 mg PO Q8HR PRN 08/09/21 08/09/21 Unknown History metFORMIN [Glucophage] 1,000 mg PO BID 08/09/21 08/09/21 Unknown History Active Meds: Active Medications Amoxicillin/Clavulanate Potassium (Amoxicillin/K Clav 875/125mg Tab) 1 each PO Q12HR [facility]; Protocol Stop: 08/16/21 13:59 Last Admin: 08/11/21 09:03 Dose: 1 each Apixaban (Apixaban 5 Mg Tab) 5 mg PO Q12HR [facility]; Protocol Last Admin: 08/11/21 09:09 Dose: 5 mg Aspirin (Aspirin Ec 81 Mg Tab) 81 mg PO QDAY [facility] Last Admin: 08/11/21 09:03 Dose: 81 mg Carvedilol (Carvedilol 12.5 Mg Tab) 12.5 mg PO BID [facility] Last Admin: 08/11/21 09:07 Dose: 12.5 mg Clonidine HCl (Clonidine 0.1 Mg Tab) 0.1 mg PO DAILY PRN PRN Reason: Blood Pressure Gabapentin (Gabapentin 300 Mg Cap) 300 mg PO TID [facility] Last Admin: 08/11/21 08:27 Dose: 300 mg Glimepiride (Glimepiride 2 Mg Tab) 2 mg PO QDDIAB [facility] Last Admin: 08/11/21 08:27 Dose: 2 mg Hydroxyzine HCl (Hydroxyzine Hcl 25 Mg Tab) 50 mg PO Q8H PRN PRN Reason: Anxiety Last Admin: 08/10/21 20:24 Dose: 50 mg Losartan Potassium (Losartan 25 Mg Tab) 25 mg PO QDAY [facility] Metformin HCl (Metformin 500 Mg Tab) 1,000 mg PO BIDDIAB [facility] Last Admin: 08/11/21 08:27 Dose: 1,000 mg Nifedipine (Nifedipine Xl 30 Mg Tab) 30 mg PO QDAY [facility] Nystatin (Nystatin Oint 15 Gm) 1 applic TP BID [facility] Last Admin: 08/11/21 09:11 Dose: Not Given Oxycodone/Acetaminophen (Oxycodone /Acetaminophen 5-325mg Tab) 1 tab PO Q6H PRN PRN Reason: Pain, Moderate (4-6) Last Admin: 08/11/21 09:19 Dose: 1 tab Paroxetine HCl (Paroxetine 20 Mg Tab) 40 mg PO QDAY [facility] Last Admin: 08/11/21 09:09 Dose: 40 mg Polyethylene Glycol (Polyethylene Glycol 3350 17 Gm Powder) 17 gm PO QDAY [facility] Last Admin: 08/11/21 09:03 Dose: 17 gm Prazosin HCl (Prazosin 1 Mg Cap) 1 mg PO HS [facility] Last Admin: 08/10/21 22:06 Dose: 1 mg Sucralfate (Sucralfate 1 Gm Tab) 1 gm PO ACHS [facility] Last Admin: 08/11/21 08:27 Dose: 1 gm Trazodone HCl (Trazodone 50 Mg Tab) 50 mg PO QHS [facility] Last Admin: 08/10/21 22:04 Dose: 50 mg Results - Results Labs/Vitals: Laboratory Last Values WBC 4.6 K/mm3 (4.5-11.0) 08/09/21 00:47 RBC 4.35 M/mm3 (3.65-5.03) 08/09/21 00:47 Hgb 11.8 gm/dl (10.1-14.3) 08/09/21 00:47 Hct 36.9 % (30.3-42.9) 08/09/21 00:47 MCV 85 fl (79-97) 08/09/21 00:47 MCH 27 pg (28-32) L 08/09/21 00:47 MCHC 32 % (30-34) 08/09/21 00:47 RDW 14.7 % (13.2-15.2) 08/09/21 00:47 Plt Count 278 K/mm3 (140-440) 08/09/21 00:47 Lymph % (Auto) 36.8 % (13.4-35.0) H 08/09/21 00:47 [place] % (Auto) 8.8 % (0.0-7.3) H 08/09/21 00:47 Eos % (Auto) 2.2 % (0.0-4.3) 08/09/21 00:47 Baso % (Auto) 0.9 % (0.0-1.8) 08/09/21 00:47 Lymph # (Auto) 1.7 K/mm3 (1.2-5.4) 08/09/21 00:47 [place] # (Auto) 0.4 K/mm3 (0.0-0.8) 08/09/21 00:47 Eos # (Auto) 0.1 K/mm3 (0.0-0.4) 08/09/21 00:47 Baso # (Auto) 0.0 K/mm3 (0.0-0.1) 08/09/21 00:47 Seg Neutrophils % 51.3 % (40.0-70.0) 08/09/21 00:47 Seg Neutrophils # 2.4 K/mm3 (1.8-7.7) 08/09/21 00:47 Sodium 138 mmol/L (137-145) 08/09/21 00:47 Potassium 4.5 mmol/L (3.6-5.0) 08/09/21 00:47 Chloride 102.7 mmol/L (98-107) 08/09/21 00:47 Carbon Dioxide 28 mmol/L (22-30) 08/09/21 00:47 Anion Gap 12 mmol/L 08/09/21 00:47 BUN 10 mg/dL (7-17) 08/09/21 00:47 Creatinine 1.0 mg/dL (0.6-1.2) 08/09/21 00:47 Estimated GFR > 60 ml/min 08/09/21 00:47 BUN/Creatinine Ratio 10 % 08/09/21 00:47 Glucose 135 mg/dL (65-100) H 08/09/21 00:47 POC Glucose 107 mg/dL (70-105) H 08/11/21 06:15 Hemoglobin A1c 7.9 % (4-6) H 08/09/21 00:46 Calcium 9.3 mg/dL (8.4-10.2) 08/09/21 00:47 Total Bilirubin < 0.20 mg/dL (0.1-1.2) 08/09/21 00:47 AST 10 units/L (5-40) 08/09/21 00:47 ALT 13 units/L (7-56) 08/09/21 00:47 Alkaline Phosphatase 109 units/L (35-129) 08/09/21 00:47 Troponin T < 0.010 ng/mL (0.00-0.029) 08/09/21 16:28 Total Protein 6.0 g/dL (6.3-8.2) L 08/09/21 00:47 Albumin 3.9 g/dL (3.9-5) 08/09/21 00:47 Albumin/Globulin Ratio 1.9 % 08/09/21 00:47 Triglycerides 64 mg/dL (2-149) 08/09/21 00:47 Cholesterol 172 mg/dL (50-199) 08/09/21 00:47 LDL Cholesterol Direct 113 mg/dL (50-130) 08/09/21 00:47 HDL Cholesterol 49 mg/dL (40-59) 08/09/21 00:47 Cholesterol/HDL Ratio 3.51 % 08/09/21 00:47 TSH 1.410 mlU/mL (0.270-4.200) 08/09/21 00:46 Hep Bs Antigen Non-reactive (Negative) 08/09/21 00:47 Hep B Core IgM Ab Non-reactive (NonReactive) 08/09/21 00:47 Hepatitis C Antibody Non-reactive (NonReactive) 08/09/21 00:47 Last Vital Signs Temp 97.8 F 08/10/21 20:36 Pulse 84 08/11/21 09:07 Resp 16 08/11/21 07:59 BP 133/70 08/11/21 09:07 Pulse Ox 97 08/11/21 07:59
[2021-08-11] MEDS: LOSARTAN 25 MG TAB PO SCH (09:40)
[2021-08-11] MEDS: NIFEdipine XL 30 MG TAB PO SCH (09:41)
--- NOTE | 2021-08-11 10:51 | Progress Note ---
Assessment and Plan Assessment and plan: #Chest painruled out Possibly secondary to pneumonia versus acute coronary syndrome versus acute pulmonary embolism versus emotional Troponin negative x 3 Chest x-ray (08/09/2021) unremarkable for consolidations, increased interstitial infiltrates, pleural effusions, or increased cardiac silhouette CT angio chest unremarkable for acute pulmonary embolism. Continue to monitor #History of pulmonary embolism Continue home Eliquis 5 mg twice daily #Hypertension - home medications: Amlodipine 10 mg daily and clonidine 0.1 mg as needed - current medications: Coreg 12.5 mg twice daily. Starting losartan 25 mg daily and nifedipine 30 mg daily. - SBP goal <160 and DBP goal <90 while inpatient - continue to monitor #Non-insulin dependent type II diabetes mellitus complicated by diabetic neuropathy - hemoglobin A1c: 7.9 - home regimen: Metformin 1000 mg twice daily and glimepiride 2 mg daily and gabapentin 300 mg 3 times daily - current regimen: Metformin 1000 mg twice daily and glimepiride 2 mg daily and gabapentin 300 mg 3 times daily - blood glucose goal 140-180 while inpatient - continue to monitor #Dysuria Pending urinalysis Continue Augmentin 500 mg twice daily x7 days. Continue to monitor #Constipation Scheduling daily MiraLAX. Continue to monitor #Obesity #Weight loss counseling #Exercise counseling - BMI 32.9 - Counseled patient on the importance of weight loss, incorporating exercise, and dietary changes (lean meats, fresh fruits and vegetables, and water intake). Patient expresses understanding. - Time: +15 min #Advanced care planning -Disease education conducted, care plan discussed, diagnoses discussed, prognosis discussed, and patient acknowledges understanding with care plan -Time: +30 min Continuing to follow this patient. Please all hesitate to reach out should any questions arise. Disposition Plan: Continue medical management Total Time Spent with Patient (Minutes): 30 minutes History Interval history: No acute events overnight. Hospitalist Physical - Constitutional Vitals: Temp Pulse Resp BP Pulse Ox 97.8 F 84 16 133/70 97 08/10/21 20:36 08/11/21 09:40 08/11/21 07:59 08/11/21 09:40 08/11/21 07:59 General appearance: Present: no acute distress, well-nourished, obese, other (Very tearful) - EENT Eyes: Present: PERRL, EOM intact ENT: hearing intact, clear oral mucosa, dentition normal - Neck Neck: Present: supple, normal ROM - Respiratory Respiratory effort: normal Respiratory: bilateral: CTA - Cardiovascular Rhythm: regular Heart Sounds: Present: S1 & S2 - Extremities Extremities: no ischemia, pulses intact, pulses symmetrical, No edema, normal temperature, normal color Peripheral Pulses: within normal limits - Abdominal General gastrointestinal: soft, non-tender, non-distended, normal bowel sounds - Integumentary Integumentary: Present: clear, warm, dry - Psychiatric Psychiatric: appropriate mood/affect, cooperative, depressed - Neurologic Neurologic: CNII-XII intact, moves all extremities - Allied Health Allied health notes reviewed: nursing HEART Score - HEART Score Troponin: Troponin T < 0.010 ng/mL (0.00-0.029) 08/09/21 16:28 Results - Labs CBC & Chem 7: 08/09/21 00:47 08/09/21 00:47 Labs: Laboratory Last Values WBC 4.6 K/mm3 (4.5-11.0) 08/09/21 00:47 RBC 4.35 M/mm3 (3.65-5.03) 08/09/21 00:47 Hgb 11.8 gm/dl (10.1-14.3) 08/09/21 00:47 Hct 36.9 % (30.3-42.9) 08/09/21 00:47 MCV 85 fl (79-97) 08/09/21 00:47 MCH 27 pg (28-32) L 08/09/21 00:47 MCHC 32 % (30-34) 08/09/21 00:47 RDW 14.7 % (13.2-15.2) 08/09/21 00:47 Plt Count 278 K/mm3 (140-440) 08/09/21 00:47 Lymph % (Auto) 36.8 % (13.4-35.0) H 08/09/21 00:47 [place] % (Auto) 8.8 % (0.0-7.3) H 08/09/21 00:47 Eos % (Auto) 2.2 % (0.0-4.3) 08/09/21 00:47 Baso % (Auto) 0.9 % (0.0-1.8) 08/09/21 00:47 Lymph # (Auto) 1.7 K/mm3 (1.2-5.4) 08/09/21 00:47 [place] # (Auto) 0.4 K/mm3 (0.0-0.8) 08/09/21 00:47 Eos # (Auto) 0.1 K/mm3 (0.0-0.4) 08/09/21 00:47 Baso # (Auto) 0.0 K/mm3 (0.0-0.1) 08/09/21 00:47 Seg Neutrophils % 51.3 % (40.0-70.0) 08/09/21 00:47 Seg Neutrophils # 2.4 K/mm3 (1.8-7.7) 08/09/21 00:47 Sodium 138 mmol/L (137-145) 08/09/21 00:47 Potassium 4.5 mmol/L (3.6-5.0) 08/09/21 00:47 Chloride 102.7 mmol/L (98-107) 08/09/21 00:47 Carbon Dioxide 28 mmol/L (22-30) 08/09/21 00:47 Anion Gap 12 mmol/L 08/09/21 00:47 BUN 10 mg/dL (7-17) 08/09/21 00:47 Creatinine 1.0 mg/dL (0.6-1.2) 08/09/21 00:47 Estimated GFR > 60 ml/min 08/09/21 00:47 BUN/Creatinine Ratio 10 % 08/09/21 00:47 Glucose 135 mg/dL (65-100) H 08/09/21 00:47 POC Glucose 107 mg/dL (70-105) H 08/11/21 06:15 Hemoglobin A1c 7.9 % (4-6) H 08/09/21 00:46 Calcium 9.3 mg/dL (8.4-10.2) 08/09/21 00:47 Total Bilirubin < 0.20 mg/dL (0.1-1.2) 08/09/21 00:47 AST 10 units/L (5-40) 08/09/21 00:47 ALT 13 units/L (7-56) 08/09/21 00:47 Alkaline Phosphatase 109 units/L (35-129) 08/09/21 00:47 Troponin T < 0.010 ng/mL (0.00-0.029) 08/09/21 16:28 Total Protein 6.0 g/dL (6.3-8.2) L 08/09/21 00:47 Albumin 3.9 g/dL (3.9-5) 08/09/21 00:47 Albumin/Globulin Ratio 1.9 % 08/09/21 00:47 Triglycerides 64 mg/dL (2-149) 08/09/21 00:47 Cholesterol 172 mg/dL (50-199) 08/09/21 00:47 LDL Cholesterol Direct 113 mg/dL (50-130) 08/09/21 00:47 HDL Cholesterol 49 mg/dL (40-59) 08/09/21 00:47 Cholesterol/HDL Ratio 3.51 % 08/09/21 00:47 TSH 1.410 mlU/mL (0.270-4.200) 08/09/21 00:46 Hep Bs Antigen Non-reactive (Negative) 08/09/21 00:47 Hep B Core IgM Ab Non-reactive (NonReactive) 08/09/21 00:47 Hepatitis C Antibody Non-reactive (NonReactive) 08/09/21 00:47 [place]/IV: Voiding Method Toilet Active Medications - Current Medications Current Medications: Generic Name Dose Route Start Last Admin Trade Name Freq PRN Reason Stop Dose Admin Amoxicillin/Clavulanate Potassium 1 each 08/09/21 14:00 08/11/21 09:03 Amoxicillin/K Clav 875/125mg Tab PO 08/16/21 13:59 1 each Q12HR [facility] Administration Protocol Apixaban 5 mg 08/10/21 10:00 08/11/21 09:09 Apixaban 5 Mg Tab PO 5 mg Q12HR [facility] Administration Protocol Aspirin 81 mg 08/09/21 10:00 08/11/21 09:03 Aspirin Ec 81 Mg Tab PO 81 mg QDAY [facility] Administration Carvedilol 12.5 mg 08/09/21 22:00 08/11/21 09:07 Carvedilol 12.5 Mg Tab PO 12.5 mg BID [facility] Administration Clonidine HCl 0.1 mg 08/09/21 10:00 Clonidine 0.1 Mg Tab PO DAILY PRN Blood Pressure Gabapentin 300 mg 08/09/21 14:00 08/11/21 08:27 Gabapentin 300 Mg Cap PO 300 mg TID [facility] Administration Glimepiride 2 mg 08/09/21 10:00 08/11/21 08:27 Glimepiride 2 Mg Tab PO 2 mg QDDIAB [facility] Administration Hydroxyzine HCl 50 mg 08/10/21 09:39 08/10/21 20:24 Hydroxyzine Hcl 25 Mg Tab PO 50 mg Q8H PRN Administration Anxiety Losartan Potassium 25 mg 08/11/21 10:00 08/11/21 09:40 Losartan 25 Mg Tab PO 25 mg QDAY [facility] Administration Metformin HCl 1,000 mg 08/09/21 10:00 08/11/21 08:27 Metformin 500 Mg Tab PO 1,000 mg BIDDIAB [facility] Administration Nifedipine 30 mg 08/11/21 10:00 08/11/21 09:41 Nifedipine Xl 30 Mg Tab PO 30 mg QDAY [facility] Administration Nystatin 1 applic 08/09/21 10:00 08/11/21 09:11 Nystatin Oint 15 Gm TP Not Given BID [facility] Oxycodone/Acetaminophen 1 tab 08/09/21 10:00 08/11/21 09:19 Oxycodone /Acetaminophen 5-325mg Tab PO 1 tab Q6H PRN Administration Pain, Moderate (4-6) Paroxetine HCl 40 mg 08/10/21 10:00 08/11/21 09:09 Paroxetine 20 Mg Tab PO 40 mg QDAY [facility] Administration Polyethylene Glycol 17 gm 08/09/21 18:00 08/11/21 09:03 Polyethylene Glycol 3350 17 Gm Powder PO 17 gm QDAY [facility] Administration Prazosin HCl 1 mg 08/09/21 22:00 08/10/21 22:06 Prazosin 1 Mg Cap PO 1 mg HS [facility] Administration Sucralfate 1 gm 08/09/21 11:30 08/11/21 08:27 Sucralfate 1 Gm Tab PO 1 gm ACHS [facility] Administration Trazodone HCl 50 mg 08/09/21 22:00 08/10/21 22:04 Trazodone 50 Mg Tab PO 50 mg QHS [facility] Administration
[2021-08-11] MEDS: PRAZOSIN 1 MG CAP PO SCH (21:35)
[2021-08-11] MEDS: traZODone 50 MG TAB PO SCH (21:35)
[2021-08-12] MEDS: SUCRALFATE 1 GM TAB PO SCH ×4 (08:18→21:28)
[2021-08-12] MEDS: metFORMIN 500 MG TAB PO SCH ×2 (08:18→16:52)
[2021-08-12] MEDS: GABAPENTIN 300 MG CAP PO SCH ×3 (08:19→20:19)
[2021-08-12] MEDS: GLIMEPIRIDE 2 MG TAB PO SCH (08:19)
[2021-08-12 09:00] LABS: Hematocrit 39.1 % (30.3-42.9); Hemoglobin 12.5 gm/dl (10.1-14.3); Mean Corpuscular HGB Conc 32 % (30-34); Mean Corpuscular Volume 85 fl (79-97); Platelet Count 259 K/mm3 (140-440); Red Blood Count 4.61 M/mm3 (3.65-5.03)
[2021-08-12] MEDS: ASPIRIN EC 81 MG TAB PO SCH (09:07)
[2021-08-12] MEDS: LOSARTAN 25 MG TAB PO SCH (09:07)
[2021-08-12] MEDS: AMOXICILLIN/K CLAV 875/125MG TAB PO SCH ×2 (09:07→21:28)
[2021-08-12] MEDS: PARoxetine 20 MG TAB PO SCH (09:07)
[2021-08-12] MEDS: APIXABAN 5 MG TAB PO SCH ×2 (09:08→21:30)
[2021-08-12] MEDS: carvediloL 12.5 MG TAB PO SCH ×2 (09:08→21:29)
[2021-08-12] MEDS: oxyCODONE /ACETAMINOPHEN 5-325MG TAB PO PRN ×2 (09:08→21:02)
[2021-08-12] MEDS: POLYETHYLENE GLYCOL 3350 17 GM POWDER PO SCH (09:11)
[2021-08-12] MEDS: NYSTATIN OINT 15 GM TP SCH ×2 (09:12→21:30)
--- NOTE | 2021-08-12 10:01 | Progress Note ---
Subjective Date of service: 08/12/21 Principal diagnosis: Dementia with Behavioral Disturbance Subjective Comment: The patient was seen today. She is calm and cooperative. She says she feels much better. The patent says the meds have been helping her. She denies SI/HI or hallucinations of any kind. She will discharge home tomorrow if night uneventful. 08/11 The patient was seen today. She says she is doing better and slept well. The patient denies SI/HI or hallucinations. She c/o pain in her left knee. The nurse notified. 08/10 The patient was seen today. She verbalizes feeling better. She says she slept good and didn't have any nightmares. She says she is still a little anxious and still has some depression. The patient denies SI/HI or hallucinations. REVIEW OF SYSTEMS Constitutional: Negative for weight loss ENT: Negative for stridor Respiratory: Negative for cough or hemoptysis All other systems reviewed and are negative MENTAL STATUS EXAMINATION General Appearance and Behavior: Age appropriate, good hygiene, wearing appropriate clothes, fair eye contact, anxious, cooperative Cooperation: Participating/engaged Psychomotor Behavior: Psychomotor normal Mood: better, anxious Affect and affective range: congruent with stated mood, tearful Thought Process: goal directed Thought Content: None Speech: normal tone and pace Suicidal Ideation: Denies Homicidal Ideation: Denies Hallucinations: Denies Delusions: None elicited Impulse Control: Limited Insight and Judgment: Limited insight and judgment Memory: Limited Attention: attentive Orientation: Alert, oriented Assessment and Plan Major Depressive Disorder Generalized Anxiety Disorder Treatment Plan Patient admitted for inpatient psychiatric evaluation, medication adjustment and close monitoring The patient's behavior, mood, sleep and appetite will be closely monitored. Patient enrolled in individual and group therapeutic sessions and encouraged to attend. Patient provided with a safe and structured environment. Patient's physical health needs will be addressed by the Hospitalist. Hospitalist Consulted Labs including CBC, CMP, Lipid profile and Hemoglobin A1C levels ordered for baseline reference Social Assessment will be completed and the Camp Housekeeper will work with patient and family to ensure a suitable and safe disposition Medication adjustment will be made as clinically indicated Continue meds Usual Wellness Jewish/Preservation: - Start Trazodone 50 mg po QHS & 50 mg po QHS PRN between 10 PM & 2 AM for insomnia - Start Melatonin 5 mg po QHS to promote circadian rhythm The patient agreed on the treatment plan, understood the risk, benefit, alternative treatment, potential consequence of no treatment, and gave informed consent. Estimated days: 7 Post hospital care: primary care provider, psychiatric provider Case staffed with Dr. Coronado Medications and Allergies Allergies Allergy/AdvReac Type Severity Reaction Status Date / Time pregabalin [From Lyrica] Allergy Hives Verified 08/08/21 21:56 Home Medications Medication Instructions Recorded Confirmed Last Taken Type Apixaban [Eliquis] 5 mg PO BID 08/09/21 08/09/21 Unknown History Aspirin EC [Halfprin EC] 81 mg PO QDAY 08/09/21 08/09/21 Unknown History Gabapentin 300 mg PO TID 08/09/21 08/09/21 Unknown History Glimepiride [Amaryl] 2 mg PO DAILY 08/09/21 08/09/21 Unknown History Nystatin Oint [Mycostatin Oint] 1 applicatio TP BID 08/09/21 08/09/21 Unknown History Oxycodone HCl/Acetaminophen 1 each PO Q6HR PRN 08/09/21 08/09/21 Unknown History [Oxycodone-Acetaminophen 10-325] Prazosin 1 mg PO HS 08/09/21 08/09/21 Unknown History Sucralfate [Carafate] 1 gm PO ACHS 08/09/21 08/09/21 Unknown History amLODIPine 10 mg PO DAILY 08/09/21 08/09/21 Unknown History cloNIDine [Catapres] 0.1 mg PO DAILY PRN 08/09/21 08/09/21 Unknown History metFORMIN [Glucophage] 1,000 mg PO BID 08/09/21 08/09/21 Unknown History PARoxetine [Paxil] 40 mg PO QDAY #60 tablet 08/12/21 Unknown Rx hydrOXYzine HCL [Atarax] 50 mg PO Q8H PRN #120 tablet 08/12/21 Unknown Rx traZODone [Desyrel] 50 mg PO QHS #30 tablet 08/12/21 Unknown Rx Active Meds: Active Medications Amoxicillin/Clavulanate Potassium (Amoxicillin/K Clav 875/125mg Tab) 1 each PO Q12HR MADHAVI; Protocol Stop: 08/16/21 13:59 Last Admin: 08/12/21 09:07 Dose: 1 each Apixaban (Apixaban 5 Mg Tab) 5 mg PO Q12HR MADHAVI; Protocol Last Admin: 08/12/21 09:08 Dose: 5 mg Aspirin (Aspirin Ec 81 Mg Tab) 81 mg PO QDAY [facility] Last Admin: 08/12/21 09:07 Dose: 81 mg Carvedilol (Carvedilol 12.5 Mg Tab) 12.5 mg PO BID [facility] Last Admin: 08/12/21 09:08 Dose: 12.5 mg Clonidine HCl (Clonidine 0.1 Mg Tab) 0.1 mg PO DAILY PRN PRN Reason: Blood Pressure Gabapentin (Gabapentin 300 Mg Cap) 300 mg PO TID [facility] Last Admin: 08/12/21 08:19 Dose: 300 mg Glimepiride (Glimepiride 2 Mg Tab) 2 mg PO QDDIAB [facility] Last Admin: 08/12/21 08:19 Dose: 2 mg Hydroxyzine HCl (Hydroxyzine Hcl 25 Mg Tab) 50 mg PO Q8H PRN PRN Reason: Anxiety Last Admin: 08/10/21 20:24 Dose: 50 mg Losartan Potassium (Losartan 25 Mg Tab) 25 mg PO QDAY [facility] Last Admin: 08/12/21 09:07 Dose: 25 mg Metformin HCl (Metformin 500 Mg Tab) 1,000 mg PO BIDDIAB [facility] Last Admin: 08/12/21 08:18 Dose: 1,000 mg Nifedipine (Nifedipine Xl 30 Mg Tab) 30 mg PO QDAY [facility] Last Admin: 08/11/21 09:41 Dose: 30 mg Nystatin (Nystatin Oint 15 Gm) 1 applic TP BID [facility] Last Admin: 08/12/21 09:12 Dose: 1 applic Oxycodone/Acetaminophen (Oxycodone /Acetaminophen 5-325mg Tab) 1 tab PO Q6H PRN PRN Reason: Pain, Moderate (4-6) Last Admin: 08/12/21 09:08 Dose: 1 tab Paroxetine HCl (Paroxetine 20 Mg Tab) 40 mg PO QDAY [facility] Last Admin: 08/12/21 09:07 Dose: 40 mg Polyethylene Glycol (Polyethylene Glycol 3350 17 Gm Powder) 17 gm PO QDAY [facility] Last Admin: 08/12/21 09:11 Dose: Not Given Prazosin HCl (Prazosin 1 Mg Cap) 1 mg PO HS [facility] Last Admin: 08/11/21 21:35 Dose: 1 mg Sucralfate (Sucralfate 1 Gm Tab) 1 gm PO ACHS [facility] Last Admin: 08/12/21 08:18 Dose: 1 gm Trazodone HCl (Trazodone 50 Mg Tab) 50 mg PO QHS [facility] Last Admin: 08/11/21 21:35 Dose: 50 mg Results - Results Labs/Vitals: Laboratory Last Values WBC 4.6 K/mm3 (4.5-11.0) 08/12/21 08:42 RBC 4.61 M/mm3 (3.65-5.03) 08/12/21 08:42 Hgb 12.5 gm/dl (10.1-14.3) 08/12/21 08:42 Hct 39.1 % (30.3-42.9) 08/12/21 08:42 MCV 85 fl (79-97) 08/12/21 08:42 MCH 27 pg (28-32) L 08/12/21 08:42 MCHC 32 % (30-34) 08/12/21 08:42 RDW 15.0 % (13.2-15.2) 08/12/21 08:42 Plt Count 259 K/mm3 (140-440) 08/12/21 08:42 Lymph % (Auto) 36.8 % (13.4-35.0) H 08/09/21 00:47 [place] % (Auto) 8.8 % (0.0-7.3) H 08/09/21 00:47 Eos % (Auto) 2.2 % (0.0-4.3) 08/09/21 00:47 Baso % (Auto) 0.9 % (0.0-1.8) 08/09/21 00:47 Lymph # (Auto) 1.7 K/mm3 (1.2-5.4) 08/09/21 00:47 [place] # (Auto) 0.4 K/mm3 (0.0-0.8) 08/09/21 00:47 Eos # (Auto) 0.1 K/mm3 (0.0-0.4) 08/09/21 00:47 Baso # (Auto) 0.0 K/mm3 (0.0-0.1) 08/09/21 00:47 Seg Neutrophils % 51.3 % (40.0-70.0) 05/06/22 00:47 Seg Neutrophils # 2.4 K/mm3 (1.8-7.7) 08/09/21 00:47 Sodium 138 mmol/L (137-145) 08/09/21 00:47 Potassium 4.5 mmol/L (3.6-5.0) 08/09/21 00:47 Chloride 102.7 mmol/L (98-107) 08/09/21 00:47 Carbon Dioxide 28 mmol/L (22-30) 08/09/21 00:47 Anion Gap 12 mmol/L 08/09/21 00:47 BUN 10 mg/dL (7-17) 08/09/21 00:47 Creatinine 1.0 mg/dL (0.6-1.2) 08/09/21 00:47 Estimated GFR > 60 ml/min 08/09/21 00:47 BUN/Creatinine Ratio 10 % 08/09/21 00:47 Glucose 135 mg/dL (65-100) H 08/09/21 00:47 POC Glucose 104 mg/dL (70-105) 08/12/21 06:19 Hemoglobin A1c 7.9 % (4-6) H 08/09/21 00:46 Calcium 9.3 mg/dL (8.4-10.2) 08/09/21 00:47 Total Bilirubin < 0.20 mg/dL (0.1-1.2) 08/09/21 00:47 AST 10 units/L (5-40) 08/09/21 00:47 ALT 13 units/L (7-56) 08/09/21 00:47 Alkaline Phosphatase 109 units/L (35-129) 08/09/21 00:47 Troponin T < 0.010 ng/mL (0.00-0.029) 08/09/21 16:28 Total Protein 6.0 g/dL (6.3-8.2) L 08/09/21 00:47 Albumin 3.9 g/dL (3.9-5) 08/09/21 00:47 Albumin/Globulin Ratio 1.9 % 08/09/21 00:47 Triglycerides 64 mg/dL (2-149) 08/09/21 00:47 Cholesterol 172 mg/dL (50-199) 08/09/21 00:47 LDL Cholesterol Direct 113 mg/dL (50-130) 08/09/21 00:47 HDL Cholesterol 49 mg/dL (40-59) 08/09/21 00:47 Cholesterol/HDL Ratio 3.51 % 08/09/21 00:47 TSH 1.410 mlU/mL (0.270-4.200) 08/09/21 00:46 Hep Bs Antigen Non-reactive (Negative) 08/09/21 00:47 Hep B Core IgM Ab Non-reactive (NonReactive) 08/09/21 00:47 Hepatitis C Antibody Non-reactive (NonReactive) 08/09/21 00:47 Last Vital Signs Temp 98.4 F 08/12/21 08:41 Pulse 71 08/12/21 09:08 Resp 18 08/12/21 09:08 BP 138/63 08/12/21 09:08 Pulse Ox 97 08/12/21 08:41
[2021-08-12] MEDS: NIFEdipine XL 30 MG TAB PO SCH (10:22)
--- NOTE | 2021-08-12 12:41 | Progress Note ---
Assessment and Plan Assessment and plan: #Chest painruled out Possibly secondary to pneumonia versus acute coronary syndrome versus acute pulmonary embolism versus emotional Troponin negative x 3 Chest x-ray (08/09/2021) unremarkable for consolidations, increased interstitial infiltrates, pleural effusions, or increased cardiac silhouette CT angio chest unremarkable for acute pulmonary embolism. Continue to monitor #History of pulmonary embolism Continue home Eliquis 5 mg twice daily #Hypertension - home medications: Amlodipine 10 mg daily and clonidine 0.1 mg as needed - current medications: Coreg 12.5 mg twice daily. Starting losartan 25 mg daily and nifedipine 30 mg daily. - SBP goal <160 and DBP goal <90 while inpatient - continue to monitor #Non-insulin dependent type II diabetes mellitus complicated by diabetic neuropathy - hemoglobin A1c: 7.9 - home regimen: Metformin 1000 mg twice daily and glimepiride 2 mg daily and gabapentin 300 mg 3 times daily - current regimen: Metformin 1000 mg twice daily and glimepiride 2 mg daily and gabapentin 300 mg 3 times daily - blood glucose goal 140-180 while inpatient - continue to monitor #Dysuria Pending urinalysis Continue Augmentin 500 mg twice daily x7 days. Continue to monitor #Constipation Scheduling daily MiraLAX. Continue to monitor #Obesity #Weight loss counseling #Exercise counseling - BMI 32.9 - Counseled patient on the importance of weight loss, incorporating exercise, and dietary changes (lean meats, fresh fruits and vegetables, and water intake). Patient expresses understanding. - Time: +15 min #Advanced care planning -Disease education conducted, care plan discussed, diagnoses discussed, prognosis discussed, and patient acknowledges understanding with care plan -Time: +30 min Continuing to follow this patient. Please all hesitate to reach out should any questions arise. Disposition Plan: Continue medical management Total Time Spent with Patient (Minutes): 30 minutes History Interval history: No acute events overnight. Hospitalist Physical - Constitutional Vitals: Temp Pulse Resp BP Pulse Ox 98.4 F 71 18 138/63 97 08/12/21 08:41 08/12/21 09:08 08/12/21 09:08 08/12/21 09:08 08/12/21 08:41 General appearance: Present: no acute distress, well-nourished, obese, other (Very tearful) - EENT Eyes: Present: PERRL, EOM intact ENT: hearing intact, clear oral mucosa - Neck Neck: Present: supple, normal ROM - Respiratory Respiratory effort: normal Respiratory: bilateral: CTA - Cardiovascular Rhythm: regular Heart Sounds: Present: S1 & S2 - Extremities Extremities: no ischemia, pulses intact, pulses symmetrical, No edema, normal temperature, normal color Peripheral Pulses: within normal limits - Abdominal General gastrointestinal: soft, non-tender, non-distended, normal bowel sounds - Integumentary Integumentary: Present: clear, warm, dry - Psychiatric Psychiatric: appropriate mood/affect, cooperative - Neurologic Neurologic: CNII-XII intact, moves all extremities - Allied Health Allied health notes reviewed: nursing HEART Score - HEART Score Troponin: Troponin T < 0.010 ng/mL (0.00-0.029) 08/09/21 16:28 Results - Labs CBC & Chem 7: 08/12/21 08:42 08/09/21 00:47 Labs: Laboratory Last Values WBC 4.6 K/mm3 (4.5-11.0) 08/12/21 08:42 RBC 4.61 M/mm3 (3.65-5.03) 08/12/21 08:42 Hgb 12.5 gm/dl (10.1-14.3) 08/12/21 08:42 Hct 39.1 % (30.3-42.9) 08/12/21 08:42 MCV 85 fl (79-97) 08/12/21 08:42 MCH 27 pg (28-32) L 08/12/21 08:42 MCHC 32 % (30-34) 08/12/21 08:42 RDW 15.0 % (13.2-15.2) 08/12/21 08:42 Plt Count 259 K/mm3 (140-440) 08/12/21 08:42 Lymph % (Auto) 36.8 % (13.4-35.0) H 08/09/21 00:47 [place] % (Auto) 8.8 % (0.0-7.3) H 08/09/21 00:47 Eos % (Auto) 2.2 % (0.0-4.3) 08/09/21 00:47 Baso % (Auto) 0.9 % (0.0-1.8) 08/09/21 00:47 Lymph # (Auto) 1.7 K/mm3 (1.2-5.4) 08/09/21 00:47 [place] # (Auto) 0.4 K/mm3 (0.0-0.8) 08/09/21 00:47 Eos # (Auto) 0.1 K/mm3 (0.0-0.4) 08/09/21 00:47 Baso # (Auto) 0.0 K/mm3 (0.0-0.1) 08/09/21 00:47 Seg Neutrophils % 51.3 % (40.0-70.0) 08/09/21 00:47 Seg Neutrophils # 2.4 K/mm3 (1.8-7.7) 08/09/21 00:47 Sodium 138 mmol/L (137-145) 08/09/21 00:47 Potassium 4.5 mmol/L (3.6-5.0) 08/09/21 00:47 Chloride 102.7 mmol/L (98-107) 08/09/21 00:47 Carbon Dioxide 28 mmol/L (22-30) 08/09/21 00:47 Anion Gap 12 mmol/L 08/09/21 00:47 BUN 10 mg/dL (7-17) 08/09/21 00:47 Creatinine 1.0 mg/dL (0.6-1.2) 08/09/21 00:47 Estimated GFR > 60 ml/min 08/09/21 00:47 BUN/Creatinine Ratio 10 % 08/09/21 00:47 Glucose 135 mg/dL (65-100) H 08/09/21 00:47 POC Glucose 104 mg/dL (70-105) 08/12/21 06:19 Hemoglobin A1c 7.9 % (4-6) H 08/09/21 00:46 Calcium 9.3 mg/dL (8.4-10.2) 08/09/21 00:47 Total Bilirubin < 0.20 mg/dL (0.1-1.2) 08/09/21 00:47 AST 10 units/L (5-40) 08/09/21 00:47 ALT 13 units/L (7-56) 08/09/21 00:47 Alkaline Phosphatase 109 units/L (35-129) 08/09/21 00:47 Troponin T < 0.010 ng/mL (0.00-0.029) 08/09/21 16:28 Total Protein 6.0 g/dL (6.3-8.2) L 08/09/21 00:47 Albumin 3.9 g/dL (3.9-5) 08/09/21 00:47 Albumin/Globulin Ratio 1.9 % 08/09/21 00:47 Triglycerides 64 mg/dL (2-149) 08/09/21 00:47 Cholesterol 172 mg/dL (50-199) 08/09/21 00:47 LDL Cholesterol Direct 113 mg/dL (50-130) 08/09/21 00:47 HDL Cholesterol 49 mg/dL (40-59) 08/09/21 00:47 Cholesterol/HDL Ratio 3.51 % 08/09/21 00:47 TSH 1.410 mlU/mL (0.270-4.200) 08/09/21 00:46 Hep Bs Antigen Non-reactive (Negative) 08/09/21 00:47 Hep B Core IgM Ab Non-reactive (NonReactive) 08/09/21 00:47 Hepatitis C Antibody Non-reactive (NonReactive) 08/09/21 00:47 [place]/IV: Voiding Method Toilet Active Medications - Current Medications Current Medications: Generic Name Dose Route Start Last Admin Trade Name Freq PRN Reason Stop Dose Admin Amoxicillin/Clavulanate Potassium 1 each 08/09/21 14:00 08/12/21 09:07 Amoxicillin/K Clav 875/125mg Tab PO 08/16/21 13:59 1 each Q12HR MADHAVI Administration Protocol Apixaban 5 mg 08/10/21 10:00 08/12/21 09:08 Apixaban 5 Mg Tab PO 5 mg Q12HR MADHAVI Administration Protocol Aspirin 81 mg 08/09/21 10:00 08/12/21 09:07 Aspirin Ec 81 Mg Tab PO 81 mg QDAY MADHAVI Administration Carvedilol 12.5 mg 08/09/21 22:00 08/12/21 09:08 Carvedilol 12.5 Mg Tab PO 12.5 mg BID MADHAVI Administration Clonidine HCl 0.1 mg 08/09/21 10:00 Clonidine 0.1 Mg Tab PO DAILY PRN Blood Pressure Gabapentin 300 mg 08/09/21 14:00 08/12/21 08:19 Gabapentin 300 Mg Cap PO 300 mg TID MADHAVI Administration Glimepiride 2 mg 08/09/21 10:00 08/12/21 08:19 Glimepiride 2 Mg Tab PO 2 mg QDDIAB MADHAVI Administration Hydroxyzine HCl 50 mg 08/10/21 09:39 08/10/21 20:24 Hydroxyzine Hcl 25 Mg Tab PO 50 mg Q8H PRN Administration Anxiety Losartan Potassium 25 mg 08/11/21 10:00 08/12/21 09:07 Losartan 25 Mg Tab PO 25 mg QDAY MADHAVI Administration Metformin HCl 1,000 mg 08/09/21 10:00 08/12/21 08:18 Metformin 500 Mg Tab PO 1,000 mg BIDDIAB MADHAVI Administration Nifedipine 30 mg 08/11/21 10:00 08/12/21 10:22 Nifedipine Xl 30 Mg Tab PO 30 mg QDAY MADHAVI Administration Nystatin 1 applic 08/09/21 10:00 08/12/21 09:12 Nystatin Oint 15 Gm TP 1 applic BID MADHAVI Administration Oxycodone/Acetaminophen 1 tab 08/09/21 10:00 08/12/21 09:08 Oxycodone /Acetaminophen 5-325mg Tab PO 1 tab Q6H PRN Administration Pain, Moderate (4-6) Paroxetine HCl 40 mg 08/10/21 10:00 08/12/21 09:07 Paroxetine 20 Mg Tab PO 40 mg QDAY MADHAVI Administration Polyethylene Glycol 17 gm 08/09/21 18:00 08/12/21 09:11 Polyethylene Glycol 3350 17 Gm Powder PO Not Given QDAY MADHAVI Prazosin HCl 1 mg 08/09/21 22:00 08/11/21 21:35 Prazosin 1 Mg Cap PO 1 mg HS MADHAVI Administration Sucralfate 1 gm 08/09/21 11:30 08/12/21 12:12 Sucralfate 1 Gm Tab PO 1 gm ACHS MADHAVI Administration Trazodone HCl 50 mg 08/09/21 22:00 08/11/21 21:35 Trazodone 50 Mg Tab PO 50 mg QHS MADHAVI Administration
[2021-08-12] MEDS: traZODone 50 MG TAB PO SCH (21:29)
[2021-08-12] MEDS: PRAZOSIN 1 MG CAP PO SCH (21:30)
[2021-08-12 21:31] VITALS: BP 163/81
== END 2021-08-13 05:55 | disposition home or self-care (01) | DRG 881 ==
LOC: UNDOADMIN 15:49 → 3A 15:49 → 5A 22:03
PROVIDERS: ADMIT Psychiatry & Neurology Psychiatry; ATTEND Psychiatry & Neurology Psychiatry
DX: F32.9 Major depressive disorder, single episode, unspecified (principal); F41.1 Generalized anxiety disorder; R30.0 Dysuria; E11.21 Type 2 diabetes mellitus with diabetic nephropathy; K59.00 Constipation, unspecified; E66.9 Obesity, unspecified; Z68.32 Body mass index [BMI] 32.0-32.9, adult; Z71.3 Dietary counseling and surveillance; Z83.3 Family history of diabetes mellitus; Z82.49 Family history of ischemic heart disease and other diseases of the circulatory system; Z88.8 Allergy status to other drugs, medicaments and biological substances; Z86.711 Personal history of pulmonary embolism
CPT/HCPCS: 36415; 71045; 71275; 80053; 80061; 80074; 82962; 83036; 84443; 84484; 85025; 85027; G0378; Q0177; Q9967